=== PATIENT | male | born 1960 ===

== ENCOUNTER 2020-08-24 14:28 | Outpatient (CLI) | payer OTHER | END 2020-08-24 23:59 | disposition home or self-care (01) | LOC: RAD 14:28 | PROVIDERS: ATTEND Internal Medicine Nephrology | DX: N20.0 Calculus of kidney (principal); N28.1 Cyst of kidney, acquired; R80.9 Proteinuria, unspecified; I12.9 Hypertensive chronic kidney disease with stage 1 through stage 4 chronic kidney disease, or unspecified chronic kidney disease; N18.4 Chronic kidney disease, stage 4 (severe); M10.9 Gout, unspecified | CPT/HCPCS: 76770 ==